=== PATIENT | female | born 2000 | race Caucasian/White ===

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

== ENCOUNTER → 2021-06-15 | Outpatient (CLI) | payer OTHER ==
--- NOTE | 2021-06-17 12:54 | REP ---
INDICATION: PREG, F/U ANATOMY-FACIAL VIEWS, HEART, AORTI COMPARISON: None. TECHNIQUE: Transabdominal obstetrical ultrasound with color Doppler evaluation. FINDINGS: Examination demonstrates a single live intrauterine in transverse presentation. motion is identified by technologist. Placenta is noted posterior and grade 0 without evidence for placenta previa or abruption. Amniotic fluid volume is normal. Cervix measures 3.8 cm in length and appears closed.. Selected gestational age: 23 weeks 2 days with LAKISHA 10/10/2021. Gestational age by current measurements 23 weeks 3 days with LAKISHA 10/09/2021. FHR equals 149 beats per minute. Estimated weight 587 grams (45thpercentile). Anatomical assessment demonstrates normal structures including cranium, choroid plexus, cavum, cerebellum/posterior fossa, facial features, lungs, four-chamber heart/ventricular outflow tracts, diaphragm, stomach, cord insertion/three-vessel cord, kidneys/bladder, spine, and extremities. IMPRESSION: Single live intrauterine in transverse lie demonstrating appropriate estimated weight. Anatomical assessment is complete and normal. No gross abnormalities are identified. <Electronically signed by Apolinar Villatoro > 06/17/21 [id number]
== END ==
LOC: M RAD 10:02
PROVIDERS: ATTEND Registered Nurse Maternal Newborn
DX: Z36.9 Encounter for antenatal screening, unspecified (principal); Z3A.23 23 weeks gestation of pregnancy